=== PATIENT | female | born 2000 | race Caucasian/White ===

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

== ENCOUNTER 2018-01-18 02:38 | Observation (INO) ==
[2018-01-18] MEDS ORDERED: 0.9 % Sodium Chloride 1,000 ML IVC ONE (02:39)
--- NOTE | 2018-01-18 02:42 | Emergency Department Note ---
Overdose - Medical Records Medical records reviewed: Yes I reviewed the patient's medical records. - Lab Data Lab results reviewed: Yes I reviewed the patient's lab results. Result diagrams: 01/18/18 03:33 01/18/18 03:33 Lab Results 01/18/18 01/18/18 01/18/18 Range/Units 02:46 02:46 02:46 WBC (4.3-11.1) K/mcL RBC (3.82-4.97) M/mcL Hgb (11.5-15.4) g/dL Hct (35.3-44.9) % MCV (83.0-100.0) fL MCH (28.0-33.3) pg MCHC (31.6-35.5) g/dL RDW (11.5-14.5) % Plt Count (140-400) K/mcL MPV (9.4-12.4) fL Immature Gran % (0-4) % Seg Neutrophils % % Lymphocytes % % Monocytes % % Eosinophils % % Basophils % % Neutrophils # (1.6-8.9) K/mcL Lymphocytes # (0.6-4.6) K/mcL Monocytes # (0.0-1.3) K/mcL Eosinophils # (0.0-0.6) K/mcL Basophils # (0.0-0.2) K/mcL Sodium (136-145) mEq/L Potassium (3.5-5.1) mEq/L Chloride (98-107) mEq/L Carbon Dioxide (23-29) mEq/L BUN (6-20) mg/dL Creatinine (0.60-1.20) mg/dL Est GFR ( Amer) Est GFR (Non-Af Amer) BUN/Creatinine Ratio (6-26) Glucose (70-105) mg/dL Calculated Osmolality (280-300) Lactic Acid (0.5-2.2) mmol/L Calcium (8.6-10.3) mg/dL Total Bilirubin (0.3-1.0) mg/dL Direct Bilirubin (0.0-0.2) mg/dL Indirect Bilirubin (0.0-1.2) mg/dL AST (13-39) Units/L ALT (7-52) Units/L Alkaline Phosphatase (34-104) Units/L Serum Total Protein (6.4-8.9) g/dL Albumin (3.5-5.7) g/dL Globulin (2.4-3.5) g/dL Albumin/Globulin Ratio (1.1-2.2) Urine Color Yellow (Yellow) Urine Clarity Clear (Clear) Urine pH 6.5 (5.0-8.0) pH Units Ur Specific [place] 1.011 (1.010-1.025) Urine Protein Negative (Neg-Trace) mg/dL Urine Glucose (UA) Normal (Normal) mg/dL Urine Ketones Negative (Negative) mg/dL Urine Blood Trace H (Negative) Urine Nitrite Negative (Negative) Urine Bilirubin Negative (Negative) Urine Urobilinogen Normal (Normal) mg/dL Ur Leukocyte Esterase Small H (Negative) Urine Microscopic WBC 0-3 (0-3) per hpf Ur Squamous Epith Cells Few (None-Few) per lpf Urine Bacteria Few (None-Few) per hpf Urine Test Negative (Negative) Salicylates (15.0-30.0) mg/dL Urine Opiates Screen Negative (Owmfsk=963) ng/mL Acetaminophen (10-20) mcg/mL Ur Barbiturates Screen Negative (Iirjzf=874) ng/mL Ur Phencyclidine Scrn Negative (Cutoff=25) ng/mL Ur Amphetamines Screen Negative (Gpxjsh=6001) ng/mL U Benzodiazepines Scrn Negative (Kpmtra=596) ng/mL Urine Cocaine Screen Positive H (Cutoff= 300) ng/mL U Marijuana (THC) Screen Negative (Cutoff = 50) ng/mL Ur Drug Screen Interp See Below Ethyl Alcohol (Less than 10) mg/dL 01/18/18 01/18/18 01/18/18 Range/Units 03:33 03:33 03:33 WBC 9.9 (4.3-11.1) K/mcL RBC 4.69 (3.82-4.97) M/mcL Hgb 14.5 (11.5-15.4) g/dL Hct 42.0 (35.3-44.9) % MCV 89.6 (83.0-100.0) fL MCH 30.9 (28.0-33.3) pg MCHC 34.5 (31.6-35.5) g/dL RDW 12.4 (11.5-14.5) % Plt Count 306 (140-400) K/mcL MPV 10.8 (9.4-12.4) fL Immature Gran % 0.2 (0-4) % Seg Neutrophils % 63.7 % Lymphocytes % 27.2 % Monocytes % 7.7 % Eosinophils % 0.5 % Basophils % 0.7 % Neutrophils # 6.3 (1.6-8.9) K/mcL Lymphocytes # 2.7 (0.6-4.6) K/mcL Monocytes # 0.8 (0.0-1.3) K/mcL Eosinophils # 0.1 (0.0-0.6) K/mcL Basophils # 0.1 (0.0-0.2) K/mcL Sodium 142 (136-145) mEq/L Potassium 3.4 L (3.5-5.1) mEq/L Chloride 109 H (98-107) mEq/L Carbon Dioxide 19 L (23-29) mEq/L BUN 7 (6-20) mg/dL Creatinine 0.75 (0.60-1.20) mg/dL Est GFR ( Amer) > 60 Est GFR (Non-Af Amer) > 60 BUN/Creatinine Ratio 9 (6-26) Glucose 109 H (70-105) mg/dL Calculated Osmolality 293 (280-300) Lactic Acid 3.5 H (0.5-2.2) mmol/L Calcium 8.7 (8.6-10.3) mg/dL Total Bilirubin 0.3 (0.3-1.0) mg/dL Direct Bilirubin 0.0 (0.0-0.2) mg/dL Indirect Bilirubin 0.3 (0.0-1.2) mg/dL AST 14 (13-39) Units/L ALT 9 (7-52) Units/L Alkaline Phosphatase 75 (34-104) Units/L Serum Total Protein 7.0 (6.4-8.9) g/dL Albumin 4.6 (3.5-5.7) g/dL Globulin 2.4 (2.4-3.5) g/dL Albumin/Globulin Ratio 1.9 (1.1-2.2) Urine Color (Yellow) Urine Clarity (Clear) Urine pH (5.0-8.0) pH Units Ur Specific [place] (1.010-1.025) Urine Protein (Neg-Trace) mg/dL Urine Glucose (UA) (Normal) mg/dL Urine Ketones (Negative) mg/dL Urine Blood (Negative) Urine Nitrite (Negative) Urine Bilirubin (Negative) Urine Urobilinogen (Normal) mg/dL Ur Leukocyte Esterase (Negative) Urine Microscopic WBC (0-3) per hpf Ur Squamous Epith Cells (None-Few) per lpf Urine Bacteria (None-Few) per hpf Urine Test (Negative) Salicylates < 2.5 L (15.0-30.0) mg/dL Urine Opiates Screen (Rfoxvc=360) ng/mL Acetaminophen < 10 L (10-20) mcg/mL Ur Barbiturates Screen (Zcilcj=131) ng/mL Ur Phencyclidine Scrn (Cutoff=25) ng/mL Ur Amphetamines Screen (Gnzsij=3371) ng/mL U Benzodiazepines Scrn (Xabzcq=746) ng/mL Urine Cocaine Screen (Cutoff= 300) ng/mL U Marijuana (THC) Screen (Cutoff = 50) ng/mL Ur Drug Screen Interp Ethyl Alcohol 82 H (Less than 10) mg/dL - Radiology Data Radiology results reviewed: Yes I reviewed the patient's radiology results. - EKG Data EKG attestation: Yes I reviewed and interpreted this EKG. EKG results narrative: Sinus tach, normal rhythm, axis and intervals, no ischemic change Overdose HPI - General Stated Complaint: possible od Time Seen by Provider: 01/18/18 02:39 Source: EMS Mode of arrival: EMS Limitations: altered mental status Nursing Notes Reviewed: Yes Vital Signs Reviewed: Yes - History of Present Illness HPI Narrative: Patient presents to the ED via EMS after a possible overdose. Found unresponsive in the back of a car. Have no history, no name, no surrounding circumstances available this time. Patient given a total of 4 mg Narcan due to decreased breathing. Patient tachypnic upon arrival. - Related Data Home Medications Medication Instructions Recorded Confirmed #79/Iron Asp Gly/FA#1 1 tab PO DAILY 10/01/16 10/01/16 [Prenate Elite Tablet] Previous Rx's Medication Instructions Recorded Docusate [Colace] 100 mg PO BID #30 capsule 10/01/16 OxyCODONE/APAP 5/325 [Percocet 1 each PO Q4HR PRN #25 tablet 10/01/16 5/325 MG] Allergies Allergy/AdvReac Type Severity Reaction Status Date / Time No Known Allergies Allergy Verified 10/01/16 13:11 Limitations: ROS unobtainable due to patients medical condition Past Medical History - Past Medical History Source: other (Unknown) Medical history: Reports: no medical history Surgical history: Reports: appendectomy Psychiatric history: Reports: no psych history - Social History Smoking Status: Current every day smoker Smokeless Tobacco Status: No Alcohol use: Reports: none Drug use: Reports: none Physical Exam - General Limitations: altered mental status General appearance: obtunded - Head Head exam: atraumatic, normocephalic, normal inspection - Eye Eye exam: Present: normal appearance, PERRL. Absent: conjunctival injection, miosis, mydriasis - ENT ENT exam: normal exam, normal oropharynx, mucous membranes dry - Neck Neck exam: Present: normal inspection, full ROM, trachea midline - Chest Chest inspection: Present: normal inspection, symmetric chest wall rise - Respiratory Respiratory exam: Present: normal lung sounds bilaterally, other (tachypnea). Absent: respiratory distress, wheezes - Cardiovascular Cardiovascular exam: Present: tachycardia, normal heart sounds - Abdominal Exam Abdominal exam: Present: soft, Non-Tender. Absent: tenderness, distention, guarding, rebound, rigidity - Extremities Exam Extremities exam: Present: normal capillary refill. Absent: pedal edema - Expanded Lower Extremity Exam Hip/Pelvis exam: Present: pelvis stable - Neurological Exam Neurological exam: Absent: alert, oriented X3 - Expanded Neurological Exam Patient oriented to: Absent: person, place, time Coma Scale Eye Opening: To Voice Coma Scale Motor Response: Localizes to Pain Coma Scale Verbal Response: None Coma Scale Total: 9 - Skin Skin exam: Present: warm, dry, intact, normal color Course Course Narrative: patient came in as suspected OD. Maintaining airway but unresponsive. Will workup and likely admit. - Reevaluation(s) Reevaluation #1: friends state patient had been drinking, using cocaine and benzos. Denies other drug use. Patient now waking up and tearful, crying for her mom. Reevaluation #2: patient has a lactic acidosis, will continue IVF. HR is trending down. Will admit to hospitalist service. Patient admitted to Dr. Caba. Vital Signs Temperature 98.6 F 01/18/18 02:40 Pulse Rate 104 01/18/18 02:40 Respiratory Rate 28 01/18/18 02:40 Blood Pressure 128/89 01/18/18 02:40 O2 Sat by Pulse Oximetry 100 01/18/18 02:40 Temperature 98.6 F 01/18/18 02:40 Pulse Rate 98 01/18/18 04:28 Respiratory Rate 16 01/18/18 04:28 Blood Pressure 137/77 01/18/18 04:28 O2 Sat by Pulse Oximetry 98 01/18/18 04:28 Oxygen Delivery Oxygen Delivery Room Air Disposition Clinical Impression: Lactic acidosis Cocaine intoxication Qualifiers: Complication of substance-induced condition: with unspecified complication Qualified Code(s): F14.929 - Cocaine use, unspecified with intoxication, unspecified Drug overdose Qualifiers: Encounter type: initial encounter Injury intent: undetermined intent Qualified Code(s): T50.904A - Poisoning by unspecified drugs, medicaments and biological substances, undetermined, initial encounter Altered mental status Qualifiers: Altered mental status type: unspecified Qualified Code(s): R41.82 - Altered mental status, unspecified Disposition: Admitted As Inpatient Condition: Fair Forms: ED Satisfaction Letter Time of Disposition: 05:07
[2018-01-18 02:56] LABS: Bilirubin,Urine Negative (Negative); Blood,Urine Trace (Negative); Clarity,Urine Clear (Clear); Color,Urine Yellow (Yellow); Glucose,Urine (UA) Normal (Normal); Ketones,Urine Negative (Negative); Leukocyte Esterase,Urine Small (Negative); Nitrite,Urine Negative (Negative); PH,Urine 6.5 pH Units (5.0-8.0); Protein,Urine Negative (Neg-Trace); Specific Gravity,Urine 1.011 (1.010-1.025); Urobilinogen,Urine Normal (Normal)
--- NOTE | 2018-01-18 03:12 | Emergency Department Note ---
Disposition Clinical Impression: Cocaine intoxication, Drug overdose, Lactic acidosis, Altered mental status Disposition: Admitted As Inpatient Referrals: Montana Cody MD [Primary Care Provider] - Forms: ED Satisfaction Letter General Adult HPI - General Chief complaint: ED Overdose Stated complaint: possible od Time Seen by Provider: 01/18/18 02:39 Source: EMS Mode of arrival: EMS Limitations: altered mental status - History of Present Illness Pain Scale: 0 - Related Data Home Medications Medication Instructions Recorded Confirmed #79/Iron Asp Gly/FA#1 1 tab PO DAILY 10/01/16 10/01/16 [Prenate Elite Tablet] Previous Rx's Medication Instructions Recorded Docusate [Colace] 100 mg PO BID #30 capsule 10/01/16 OxyCODONE/APAP 5/325 [Percocet 1 each PO Q4HR PRN #25 tablet 10/01/16 5/325 MG] Allergies Allergy/AdvReac Type Severity Reaction Status Date / Time No Known Allergies Allergy Verified 10/01/16 13:11 Past Medical History - Past Medical History Medical history: Reports: no medical history Surgical history: Reports: appendectomy Psychiatric history: Reports: no psych history - Social History Smoking Status: Current every day smoker Smokeless Tobacco Status: No Alcohol use: Reports: none Drug use: Reports: none Physical Exam - General Limitations: altered mental status General appearance: obtunded Course Vital Signs Temperature 98.6 F 01/18/18 02:40 Pulse Rate 104 01/18/18 02:40 Respiratory Rate 28 01/18/18 02:40 Blood Pressure 128/89 01/18/18 02:40 O2 Sat by Pulse Oximetry 100 01/18/18 02:40 Temperature 98.6 F 01/18/18 02:40 Pulse Rate 98 01/18/18 04:28 Respiratory Rate 16 01/18/18 04:28 Blood Pressure 137/77 01/18/18 04:28 O2 Sat by Pulse Oximetry 98 01/18/18 04:28 Oxygen Delivery Oxygen Delivery Room Air Medical Decision Making - Lab Data Result diagrams: 01/18/18 03:33 01/18/18 03:33 Lab Results 01/18/18 01/18/18 01/18/18 Range/Units 02:46 02:46 02:46 WBC (4.3-11.1) K/mcL RBC (3.82-4.97) M/mcL Hgb (11.5-15.4) g/dL Hct (35.3-44.9) % MCV (83.0-100.0) fL MCH (28.0-33.3) pg MCHC (31.6-35.5) g/dL RDW (11.5-14.5) % Plt Count (140-400) K/mcL MPV (9.4-12.4) fL Immature Gran % (0-4) % Seg Neutrophils % % Lymphocytes % % Monocytes % % Eosinophils % % Basophils % % Neutrophils # (1.6-8.9) K/mcL Lymphocytes # (0.6-4.6) K/mcL Monocytes # (0.0-1.3) K/mcL Eosinophils # (0.0-0.6) K/mcL Basophils # (0.0-0.2) K/mcL Sodium (136-145) mEq/L Potassium (3.5-5.1) mEq/L Chloride (98-107) mEq/L Carbon Dioxide (23-29) mEq/L BUN (6-20) mg/dL Creatinine (0.60-1.20) mg/dL Est GFR ( Amer) Est GFR (Non-Af Amer) BUN/Creatinine Ratio (6-26) Glucose (70-105) mg/dL Calculated Osmolality (280-300) Lactic Acid (0.5-2.2) mmol/L Calcium (8.6-10.3) mg/dL Total Bilirubin (0.3-1.0) mg/dL Direct Bilirubin (0.0-0.2) mg/dL Indirect Bilirubin (0.0-1.2) mg/dL AST (13-39) Units/L ALT (7-52) Units/L Alkaline Phosphatase (34-104) Units/L Serum Total Protein (6.4-8.9) g/dL Albumin (3.5-5.7) g/dL Globulin (2.4-3.5) g/dL Albumin/Globulin Ratio (1.1-2.2) Urine Color Yellow (Yellow) Urine Clarity Clear (Clear) Urine pH 6.5 (5.0-8.0) pH Units Ur Specific [place] 1.011 (1.010-1.025) Urine Protein Negative (Neg-Trace) mg/dL Urine Glucose (UA) Normal (Normal) mg/dL Urine Ketones Negative (Negative) mg/dL Urine Blood Trace H (Negative) Urine Nitrite Negative (Negative) Urine Bilirubin Negative (Negative) Urine Urobilinogen Normal (Normal) mg/dL Ur Leukocyte Esterase Small H (Negative) Urine Microscopic WBC 0-3 (0-3) per hpf Ur Squamous Epith Cells Few (None-Few) per lpf Urine Bacteria Few (None-Few) per hpf Urine Test Negative (Negative) Salicylates (15.0-30.0) mg/dL Urine Opiates Screen Negative (Minujh=007) ng/mL Acetaminophen (10-20) mcg/mL Ur Barbiturates Screen Negative (Sdtald=132) ng/mL Ur Phencyclidine Scrn Negative (Cutoff=25) ng/mL Ur Amphetamines Screen Negative (Uzqpmj=6352) ng/mL U Benzodiazepines Scrn Negative (Rfkgas=649) ng/mL Urine Cocaine Screen Positive H (Cutoff= 300) ng/mL U Marijuana (THC) Screen Negative (Cutoff = 50) ng/mL Ur Drug Screen Interp See Below Ethyl Alcohol (Less than 10) mg/dL 01/18/18 01/18/18 01/18/18 Range/Units 03:33 03:33 03:33 WBC 9.9 (4.3-11.1) K/mcL RBC 4.69 (3.82-4.97) M/mcL Hgb 14.5 (11.5-15.4) g/dL Hct 42.0 (35.3-44.9) % MCV 89.6 (83.0-100.0) fL MCH 30.9 (28.0-33.3) pg MCHC 34.5 (31.6-35.5) g/dL RDW 12.4 (11.5-14.5) % Plt Count 306 (140-400) K/mcL MPV 10.8 (9.4-12.4) fL Immature Gran % 0.2 (0-4) % Seg Neutrophils % 63.7 % Lymphocytes % 27.2 % Monocytes % 7.7 % Eosinophils % 0.5 % Basophils % 0.7 % Neutrophils # 6.3 (1.6-8.9) K/mcL Lymphocytes # 2.7 (0.6-4.6) K/mcL Monocytes # 0.8 (0.0-1.3) K/mcL Eosinophils # 0.1 (0.0-0.6) K/mcL Basophils # 0.1 (0.0-0.2) K/mcL Sodium 142 (136-145) mEq/L Potassium 3.4 L (3.5-5.1) mEq/L Chloride 109 H (98-107) mEq/L Carbon Dioxide 19 L (23-29) mEq/L BUN 7 (6-20) mg/dL Creatinine 0.75 (0.60-1.20) mg/dL Est GFR ( Amer) > 60 Est GFR (Non-Af Amer) > 60 BUN/Creatinine Ratio 9 (6-26) Glucose 109 H (70-105) mg/dL Calculated Osmolality 293 (280-300) Lactic Acid 3.5 H (0.5-2.2) mmol/L Calcium 8.7 (8.6-10.3) mg/dL Total Bilirubin 0.3 (0.3-1.0) mg/dL Direct Bilirubin 0.0 (0.0-0.2) mg/dL Indirect Bilirubin 0.3 (0.0-1.2) mg/dL AST 14 (13-39) Units/L ALT 9 (7-52) Units/L Alkaline Phosphatase 75 (34-104) Units/L Serum Total Protein 7.0 (6.4-8.9) g/dL Albumin 4.6 (3.5-5.7) g/dL Globulin 2.4 (2.4-3.5) g/dL Albumin/Globulin Ratio 1.9 (1.1-2.2) Urine Color (Yellow) Urine Clarity (Clear) Urine pH (5.0-8.0) pH Units Ur Specific [place] (1.010-1.025) Urine Protein (Neg-Trace) mg/dL Urine Glucose (UA) (Normal) mg/dL Urine Ketones (Negative) mg/dL Urine Blood (Negative) Urine Nitrite (Negative) Urine Bilirubin (Negative) Urine Urobilinogen (Normal) mg/dL Ur Leukocyte Esterase (Negative) Urine Microscopic WBC (0-3) per hpf Ur Squamous Epith Cells (None-Few) per lpf Urine Bacteria (None-Few) per hpf Urine Test (Negative) Salicylates < 2.5 L (15.0-30.0) mg/dL Urine Opiates Screen (Zibcyi=150) ng/mL Acetaminophen < 10 L (10-20) mcg/mL Ur Barbiturates Screen (Zksrps=116) ng/mL Ur Phencyclidine Scrn (Cutoff=25) ng/mL Ur Amphetamines Screen (Zbsqgf=8034) ng/mL U Benzodiazepines Scrn (Ouqrvp=287) ng/mL Urine Cocaine Screen (Cutoff= 300) ng/mL U Marijuana (THC) Screen (Cutoff = 50) ng/mL Ur Drug Screen Interp Ethyl Alcohol 82 H (Less than 10) mg/dL Attestation Statement - Attestation Attestation: I examined this patient and my medical decision-making was reviewed with the Resident Physician. I agree with the documented findings, disposition and treatment plan as described except to the extent set forth below. Patient presents to the ED with a chief complaint of altered mental status. Patient was found in the back of a car that was pulled over on the side of the road. EMS was called because she was poorly responsive. They said when they got there she was breathing rapidly and not responding to them. She had been administered intranasal Narcan and they gave her an IV dose with no response. Friend reported that she had done cocaine marijuana and drink alcohol. On examination her pupils are large and responsive. She sleeping. Localizes pain. No obvious abrasions contusions or signs of trauma. Tachycardic. Plan. Likely polysubstance abuse. Patient somnolent but protecting her airway. IV hydration basic labs and UDS. Patient now more awake and alert. Heart rate improved but still elevated. Lactate high. We will observe.
[2018-01-18 03:13] LABS: Amphetamine Screen,Urine Negative ng/mL (Cutoff=1000); Bacteria,Urine Few per hpf (None-Few); Barbiturate Screen,Urine Negative ng/mL (Cutoff=200); Benzodiazepines Screen,Urine Negative ng/mL (Cutoff=200); Cannabinoid Screen,Urine Negative ng/mL (Cutoff = 50); Cocaine Screen,Urine Positive ng/mL (Cutoff= 300); Opiate Screen,Urine Negative ng/mL (Cutoff=300); Phencyclidine Screen,Urine Negative ng/mL (Cutoff=25); Squamous Epithelial Cell,Urine Few per lpf (None-Few); WBC,Urine 0-3 per hpf (0-3)
[2018-01-18 03:53] LABS: Basophils # 0.1 K/mcL (0.0-0.2); Basophils % 0.7 %; Eosinophils # 0.1 K/mcL (0.0-0.6); Eosinophils % 0.5 %; Hemoglobin 14.5 g/dL (11.5-15.4); Immature Granulocytes % 0.2 % (0-4); Lymphocytes # 2.7 K/mcL (0.6-4.6); Lymphocytes % 27.2 %; Mean Corpuscular HGB Conc 34.5 g/dL (31.6-35.5); Mean Corpuscular Hemoglobin 30.9 pg (28.0-33.3); Mean Corpuscular Volume 89.6 fL (83.0-100.0); Mean Platelet Volume 10.8 fL (9.4-12.4); Monocytes # 0.8 K/mcL (0.0-1.3); Monocytes % 7.7 %; Neutrophils # 6.3 K/mcL (1.6-8.9); Platelet Count 306 K/mcL (140-400); Red Blood Count 4.69 M/mcL (3.82-4.97); Red Cell Distribution Width 12.4 % (11.5-14.5); Segmented Neutrophils % 63.7 %
[2018-01-18 04:13] LABS: Acetaminophen < 10 mcg/mL (10-20); Alanine Aminotransferase 9 Units/L (7-52); Albumin 4.6 g/dL (3.5-5.7); Albumin/Globulin Ratio 1.9 (1.1-2.2); Alkaline Phosphatase 75 Units/L (34-104); Aspartate Amino Transferase 14 Units/L (13-39); BUN/Creatinine Ratio 9 (6-26); Bilirubin,Indirect 0.3 mg/dL (0.0-1.2); Bilirubin,Total 0.3 mg/dL (0.3-1.0); Blood Urea Nitrogen 7 mg/dL (6-20); Calcium 8.7 mg/dL (8.6-10.3); Carbon Dioxide 19 mEq/L (23-29); Chloride 109 mEq/L (98-107); Ethanol 82 mg/dL (Less than 10); Globulin 2.4 g/dL (2.4-3.5); Glucose 109 mg/dL (70-105); Osmolality,Calculated 293 (280-300); Potassium 3.4 mEq/L (3.5-5.1); Salicylate < 2.5 mg/dL (15.0-30.0); Sodium 142 mEq/L (136-145); eGFR For Non-African Americans > 60
[2018-01-18] MEDS: 0.9 % Sodium Chloride 1,000 ML IVC SCH ×2 (04:34→08:41)
[2018-01-18] MEDS ORDERED: Naloxone 0.4 MG/ML INJ IVP PRN (08:23)
--- NOTE | 2018-01-18 08:55 | Internal Med History&Physical ---
Date of Encounter: 01/18/18 Time of Encounter: 08:40 Internal Medicine - H&P: HPI Chief complaint: overdose History of present illness: Ms. Christy is a 17 year old female presented to the ED with AMS,was found in the back of a car that was pulled over on the side of the road. When EMS got there, she was unresponsive and gave her narcan without significant response. It was reported that she had done cocaine, marijunan, and drink EtOH prior to the event. Currently, she is sleeping comfortably without any complaints. No cardiopulmonary, GI, or symptoms. Denies history of alcohol withdrawal. Past Med Surg Social Fam HX - Past Medical History Attestation: Yes The following information was validated with the patient. Medical history: no medical history Psychiatric history: anxiety - Past Surgical History Surgical History: appendectomy - Social History Smoking Status: Current every day smoker Packs per day: 0.5 Smokeless Tobacco Status: No Alcohol use: occasionally Drug use: marijuana - Family History Father Hx Family Endocrine Disorder: Yes (DM2) Internal Medicine - H&P: Meds Docusate [Colace] 100 mg PO BID #30 capsule 10/01/16 [Rx] OxyCODONE/APAP 5/325 [Percocet 5/325 MG] 1 each PO Q4HR PRN #25 tablet 10/01/16 [Rx] #79/Iron Asp Gly/FA#1 [Prenate Elite Tablet] 1 tab PO DAILY 10/01/16 [ History] 3 Allergy/AdvReac Type Severity Reaction Status Date / Time acetaminophen [From Percocet] Allergy Hives Verified 01/18/18 06:10 Oxycodone [From Percocet] Allergy Hives Verified 01/18/18 06:10 All Systems PM: A 10-system review of systems was performed and is negative for pertinent findings except as documented above in the HPI. - Constitutional Vitals: Temp Pulse Resp BP Pulse Ox 97.9 F 67 16 106/58 99 01/18/18 08:02 01/18/18 08:02 01/18/18 08:02 01/18/18 08:02 01/18/18 08:02 Exam: General: Alert and oriented HEENT:EOM, pupils equal, round, and reactive. Cardiovascular:Normal S1 & S2, no murmurs or gallops. Pulse regular. Lungs:Normal breath sounds, no wheezes or crackles. Abdomen:Soft, non-tender, no rigidity. Extremities:No deformity, no edema or tenderness, no joint swelling. Neurological:Normal cognition and motor skills. No focal deficits. Skin:Normal color, no rash, no lesions. Pulses:Carotid and radial pulses normal +2. Rest of the physical exam is non-contributory Internal Med - H&P Results - Labs CBC & Chem 7: 01/18/18 03:33 01/18/18 03:33 - Assessment and plan (1) Cocaine intoxication Current Visit: Yes Status: Acute Assessment and plan: Presented with altered mental status, urine drug screen positive for cocaine. Currently sleepy but comfortable, denies any specific symptoms. Monitor Qualifiers: Complication of substance-induced condition: with delirium Qualified Code(s ): F14.921 - Cocaine use, unspecified with intoxication delirium (2) Alcohol intoxication Current Visit: Yes Status: Acute Assessment and plan: EtOHl level of 82 on presentation. SLeepy but easily arousable no history of withdrawal Qualifiers: Complication of substance-induced condition: with delirium Qualified Code(s ): F10.921 - Alcohol use, unspecified with intoxication delirium (3) Hypokalemia Current Visit: Yes Status: Acute Assessment and plan: repleted (4) Lactic acidosis Current Visit: Yes Status: Acute Assessment and plan: given IVF will repeat later today - Time Spent With Patient Total time spent is greater than 50% in coordination of care (as documented) at patient's floor/unit and/or counseling patient:
--- NOTE | 2018-01-18 16:44 | Electrocardiograph Report ---
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
[2018-01-18] MEDS ORDERED: Nicotine 21 MG PATCH.TD24 TD STA (17:15)
[2018-01-19 06:17] LABS: Basophils # 0.1 K/mcL (0.0-0.2); Basophils % 0.7 %; Eosinophils # 0.3 K/mcL (0.0-0.6); Eosinophils % 3.3 %; Hematocrit 42.3 % (35.3-44.9); Hemoglobin 14.2 g/dL (11.5-15.4); Immature Granulocytes % 0.2 % (0-4); Lymphocytes # 3.4 K/mcL (0.6-4.6); Lymphocytes % 37.9 %; Mean Corpuscular HGB Conc 33.6 g/dL (31.6-35.5); Mean Corpuscular Hemoglobin 30.9 pg (28.0-33.3); Mean Corpuscular Volume 92.2 fL (83.0-100.0); Mean Platelet Volume 11.3 fL (9.4-12.4); Monocytes # 0.7 K/mcL (0.0-1.3); Monocytes % 7.5 %; Neutrophils # 4.5 K/mcL (1.6-8.9); Platelet Count 274 K/mcL (140-400); Red Blood Count 4.59 M/mcL (3.82-4.97); Red Cell Distribution Width 12.6 % (11.5-14.5); Segmented Neutrophils % 50.4 %
[2018-01-19 06:34] LABS: BUN/Creatinine Ratio 12 (6-26); Blood Urea Nitrogen 10 mg/dL (6-20); Calcium 8.9 mg/dL (8.6-10.3); Carbon Dioxide 24 mEq/L (23-29); Chloride 105 mEq/L (98-107); Glucose 92 mg/dL (70-105); Osmolality,Calculated 287 (280-300); Potassium 3.8 mEq/L (3.5-5.1); Sodium 139 mEq/L (136-145); eGFR For Non-African Americans > 60
[2018-01-19 07:19] VITALS: BP 106/57
--- NOTE | 2018-01-19 07:38 | Discharge Summary ---
Date of Encounter: 01/19/18 Time of Encounter: 07:37 - Discharge Diagnosis (1) Cocaine intoxication Priority: Primary Status: Acute Qualifiers: Complication of substance-induced condition: with delirium Qualified Code(s ): F14.921 - Cocaine use, unspecified with intoxication delirium (2) Lactic acidosis Priority: Primary Status: Acute (3) Alcohol intoxication Priority: Primary Status: Acute Qualifiers: Complication of substance-induced condition: with delirium Qualified Code(s ): F10.921 - Alcohol use, unspecified with intoxication delirium (4) Hypokalemia Priority: Primary Status: Acute Hospital course: Ms. Christy is a 17 year old female with no past medical history other than substance abuse who presented to the ED with AMS,was found in the back of a car that was pulled over on the side of the road. When EMS got there, she was unresponsive and gave her narcan without significant response. It was reported that she had done cocaine, marijunan, and drink EtOH prior to the event. Urine drug screen was positive for cocaine. The patient was awake later and was admitted for observation. Ended up being discharged the following day as she was hemodynamically stable. She was counseled and was not happy about the fact that she had a urine drug screen that was positive for cocaine. Her alcohol level was 82. Patient was hemodynamically stable on 01/19 and was discharged in a stable condition. - Time Spent with Patient Total time spent providing and/or coordinating discharge services: Greater than 30 minutes - Discharge Medications Allergies/Adverse Reactions: 3 Allergy/AdvReac Type Severity Reaction Status Date / Time acetaminophen [From Percocet] Allergy Hives Verified 01/18/18 06:10 Oxycodone [From Percocet] Allergy Hives Verified 01/18/18 06:10 Date of admission: 01/18/18 05:18 Primary care physician: Montana Cody MD - Constitutional Vitals: Temp Pulse Resp BP Pulse Ox 97.6 F 73 17 106/57 95 01/19/18 07:13 01/19/18 07:13 01/19/18 07:13 01/19/18 07:13 01/19/18 07:13 Exam: GEN: NAD CVS: RRR. S1, S2, No m/r/g RESP: CTAB ABD: Soft, NT, ND, +BS EXT: No edema. 2+ DP. No rashes NEURO: Nonfocal - Patient Status Disposition: Home, Self-Care Condition: Fair Overall status at discharge: patient is back to baseline - Discharge Instructions Follow Up With: Montana Cody MD [Primary Care Provider] - 01/24/18 2:30 pm - Diet and Activity Activity: increase activity as tolerated Diet: regular diet
== END 2018-01-19 07:50 | disposition home or self-care (01) ==
LOC: 2NNU 02:38 → EMEROO 02:38 → 2NNU 05:33
PROVIDERS: ADMIT Family Medicine; ATTEND Family Medicine